=== PATIENT | female | born 1940 | race Caucasian/White ===

== ENCOUNTER 2024-01-03 14:13 | Emergency (ER) | payer MEDICARE, SELFPAY ==
[2024-01-03 14:30] VITALS: BP 135/75; BMI 28.8
[2024-01-03 14:47] LABS: ALT (SGPT) 13 U/L (0-35); AST (SGOT) 26 U/L (14-36); Albumin 3.5 g/dl (3.5-5.0); Alkaline Phosphatase 77 U/L (38-126); Blood Urea Nitrogen 21 mg/dl (7-17); Calcium 8.9 mg/dl (8.4-10.2); Carbon Dioxide 22 mmol/L (22-30); Chloride 111 mmol/L (98-107); Estimated Creatinine Clearance 34 ml/min; Glucose 107 mg/dl (70-99); Potassium 4.4 mmol/L (3.5-5.1); Sodium 139 mmol/L (135-145); Total Bilirubin 0.4 mg/dl (0.2-1.3); Total Protein 5.7 g/dl (6.3-8.2)
--- NOTE | 2024-01-03 15:03 | ED.GENMED ---
History of Present Illness
General
Chief Complaint: Abnormal Lab Value
Source: family and fpc
Exam Limitations: dementia
Time Seen by Provider: 01/03/24 15:02
Nursing documentation reviewed up to this point in time: agreed with
History of Present Illness
History of Present Illness:
Patient is an 83-year-old female with past medical history of aortic valve replacement on Plavix, polymyalgia rheumatica memory issues sent to the ER from assisted living facility for evaluation of low hemoglobin. Daughter is at bedside per
patient's hemoglobin was apparently 6.5 from blood work that was done yesterday. It was documented from fpc paperwork that patient's hemoglobin is 8.0 on 12/27 they report patient was recently hospitalized at [facility] December
2 for 6 days for an upper and lower GI bleed. She did require transfusions at the time. They were not able to cauterized the bleeding that they found on endoscopy but they put some type of adhesive. She is scheduled for GI appointment in January
from [facility] [address] and repeat endoscopy in February. Plavix was discontinued during hospitalization patient was restarted back on Plavix December 18. She is still on ASA. Patient presents awake alert has no complaints not exactly
sure why she is here. She is at baseline mental status as per daughters at bedside.
Daughters report last time she had a low hemoglobin she was vomiting blood and had rectal bleeding and there was no complaints of this from the fpc.
I spoke with staff from [facility] and there was no report from [place] of this.
Review of Systems
Review of Systems
Allergies reviewed?: Yes
Unable to obtain full review of systems at this time due to: dementia
All Other Systems: ROS reviewed and negative except as documented in HPI and ROS
Constitutional: Reports no symptoms
Respiratory: Reports no symptoms
Cardiac: Reports no symptoms
ABD/GI: Reports no symptoms
Musculoskeletal: Reports no symptoms
Skin: Reports no symptoms
Neurological: Reports no symptoms
Phy Exam
General Physical Exam
General Presentation: no apparent distress
General age: appears stated age
General Skin: warm and dry
General Habitus: elderly
General Mental: alert
General Hydration: appears well hydrated
Cardiovascular Exam
Cardiovascular Exam: regular rate/rhythm, no murmur and normal peripheral pulses
Pulmonary Exam
Pulmonary Exam: lungs clear and no respiratory distress
Gastrointestinal Exam
Gastrointestinal Exam: normal bowel sounds, non tender, soft and other (Rectal exam done no stool in rectum)
Neurological Exam
Neurological Exam: alert
Musculoskeletal Exam
Musculoskeletal Exam: full ROM
Skin Exam
Skin Exam: normal color and warm/dry
Psychiatric Exam
Psychiatric Exam: normal mood/affect
Course
Orders/Labs/Results
Orders:
Orders
01/03/24 14:15
EKG [Electrocardiogram (*1)] Urgent
Reason for Study: Vertigo / Dizzy
EKG- Treatment ONCE
01/03/24 14:16
Type+Screen Urgent
Complete Blood Count/With Diff Urgent
Comprehensive Metabolic Panel Urgent
Abnormal Lab Results
01/03/24
14:16
RBC 2.50 L 10^6/uL
(4.20-5.40)
Hgb 8.0 L g/dL
(12.0-16.0)
Hct 23.6 L %
(37.0-47.0)
MCH 32.0 H pg
(27.0-31.0)
MPV 11.0 H fL
(7.4-10.4)
Absolute Lymphs (auto) 0.9 L 10^3/uL
(1.2-3.4)
Absolute Monos (auto) 0.8 H 10^3/uL
(0.1-0.6)
Lymphocytes % 16.3 L %
(20.5-51.1)
Monocytes % 14.4 H %
(1.7-9.3)
Chloride 111 H mmol/L
(98-107)
BUN 21 H mg/dl
(7-17)
Creatinine 1.4 H mg/dL
(0.6-1.0)
Glucose 107 H mg/dl
(70-99)
Total Protein 5.7 L g/dl
(6.3-8.2)
01/03/24 14:16
01/03/24 14:16
Vital Signs
Initial and Last Documented VS:
Initial Vital Signs
Pulse Resp Pulse Ox
83 19 94
01/03/24 14:15 01/03/24 14:15 01/03/24 14:15
Last Documented Vital Signs
Temp Pulse Resp BP Pulse Ox
98.5 F 81 16 133/45 95
01/03/24 16:18 01/03/24 17:00 01/03/24 17:00 01/03/24 17:00 01/03/24 17:00
Tenoner Operator consulted with Physician
Tenoner Operator consulted with physician?: Yes
Name of Physician Consulted: Messi
MDM/Problems Addressed
Differential Diagnosis Includes:
Not limited to anemia
MDM/Problems Addressed:
Patient is an 83-year-old female from assisted living sent for low hemoglobin of 6.0. Patient was recently hospitalized at [facility] for upper GI bleed EGD showing severe esophagitis. Patient did receive transfusions while
hospitalized. She apparently had a hemoglobin of 8.0 in December 27 and hemoglobin from yesterday January 01 was found to be 6.5 patient was sent here for evaluation. Daughters report patient previously at [facility] did have upper and lower GI
bleeding with anemia and she has not had any episodes at this time. She is awake alert and mlidly confused at baseline not able to give full history.
Patient presents awake alert no acute distress no complaints. Abdomen soft nontender rectal exam done no stool. Hemoglobin stable at 8.0, hematocrit 23.6 normal platelets normal white count no fever. Stable vital signs. Patient is not been here
in the past BUN 21 creatinine minimally elevated 1.4. NSR on EKG. patient has no complaints and is stable here with a hemoglobin of 8.0
With no bleeding stable for d/c
I spoke with Georgette, health and technical solutions director at [facility] and reviewed patient's hemoglobin today of 8.0. Patient's GI specialist is Dr. Bryant Cali in [place], she does have an appointment in January and is scheduled for repeat endoscopy
in February however I reviewed with staff that patient should be seen sooner and they will call to schedule an appointment. All of this was reviewed with daughters.
1644: I spoke with Nurse at Dr Cali office who spoke with daughter and was able to arrange earlier appt. tomorrow and daughter will take patient to the appointment.
Case reviewed with ED physician stable for discharge home but will need follow-up with outpatient G as scheduled tomorrow.
*Critical Care Note
Total Time (30-74mins, 75-104mins- exclusive of procedures): Not Applicable
Data Reviewed
Review of Other/Old Records Reveals: Other (Records from [facility] endoscopy shows severe esophagitis of bleeding verifications was found in the lower third of the esophagus area was injected with epinephrine for hemostasis and
hemostatic spray was deployed)
ED Attending Note
-
Portions of this chart may have been created with voice recognition software.� Occasional wrong word or��sound alike� substitutions may have occurred due to the inherent limitations of voice recognition software.
Discharge Plan
Departure
Patient Disposition: Home (Routine Discharge)
Date of Disposition: 01/03/24
Time of Disposition: 16:58
Patient with high blood pressure during this ER visit?: No
Condition: Fair
Covid-19: Not Applicable
Discharge Problem:
Anemia
Prescriptions:
No Action
atorvastatin [Lipitor] 40 mg Tablet
40 mg PO HS
bupropion HCl [Wellbutrin SR] 150 mg Tablet Sustained-Release 12 Hr
150 mg PO DAILY
acetaminophen [Tylenol] 325 mg Tablet
650 mg PO Q4HPRN PRN (Reason: mild pain)
lisinopril 20 mg Tablet
20 mg PO BID
clopidogrel [Plavix] 75 mg Tablet
75 mg PO DAILY
amlodipine [Norvasc] 5 mg Tablet
5 mg PO DAILY
hydrocortisone 1 % Cream
1 applic TOPICAL BIDPRN PRN (Reason: to back)
pantoprazole [Protonix] 40 mg Tablet,Delayed Release (Dr/Ec)
40 mg PO BID
dapsone 25 mg Tablet
25 mg PO DAILY
metoprolol succinate [Toprol XL] 25 mg Tablet Extended Release 24 Hr
25 mg PO DAILY
hydroxychloroquine [Plaquenil] 200 mg Tablet
200 mg PO DAILY
memantine [Namenda] 10 mg Tablet
10 mg PO DAILY
cholecalciferol (vitamin D3) [Vitamin D3] 50 mcg (2,000 unit) Tablet
50 mcg PO DAILY
Referrals:
Maddison Murguia MD [Family Provider] -
Activity Restrictions/Additional Instructions:
Patient is anemic with a hemoglobin of 8.0. Patient should follow-up with GI as scheduled tomorrow and return if if any worsening of symptoms including weakness vomiting blood rectal bleeding black or dark stools or any further concerns.
Interventions
Interventions:
*Risk Screen - Suicide Last Done: 01/03/24 14:30
*General Assessment Last Done: 01/03/24 14:30
*Neglect/Abuse Screening Last Done: 01/03/24 14:30
ED- Fall Risk Assessment Last Done: 01/03/24 14:30
*ED COVID-19 Vaccine History Last Done: 01/03/24 14:30
*Nursing Disposition Last Done: 01/03/24 17:12
Discharge Date and Time
Discharge Date/Time: 01/03/24 17:13
Print Language: CITIZEN OF [place]
[2024-01-03 15:17] VITALS: BP 134/39
[2024-01-03 15:18] LABS: % Eosinophils 3.5 % (0-6); % Immature Granulocytes 0.2 % (0-0.5); % Lymphocytes 16.3 % (20.5-51.1); % Monocytes 14.4 % (1.7-9.3); % Neutrophils 64.6 % (42.2-75.2); Absolute Basophils 0.1 10^3/uL (0-0.2); Absolute Eosinophils 0.2 10^3/uL (0-0.7); Absolute Lymphocytes 0.9 10^3/uL (1.2-3.4); Absolute Monocytes 0.8 10^3/uL (0.1-0.6); Absolute Neutrophils 3.7 10^3/uL (1.4-6.5); Hematocrit 23.6 % (37.0-47.0); Mean Corp Hgb Conc. 33.9 g/dL (33.0-37.0); Mean Corpuscular Volume 94.4 fL (81.0-99.0); Nucleated Red Blood Cells % 0 %; Platelet Count 205 10^3/uL (130-400); Red Cell Dist. Width 12.8 % (11.5-14.5); White Blood Cell Count 5.8 10^3/uL (4.8-10.8)
[2024-01-03 15:23] VITALS: BP 134/39
[2024-01-03 16:00] VITALS: BP 132/47
[2024-01-03 16:18] VITALS: BP 132/47
[2024-01-03 17:00] VITALS: BP 133/45
== END 2024-01-03 17:13 | disposition home or self-care (01) ==
LOC: EMR 14:13
PROVIDERS: EMERGENCY PHYSICIAN Emergency Medicine; FAMILY PHYSICIAN Internal Medicine Geriatric Medicine
DX: D64.9 Anemia, unspecified (principal); F03.90 Unspecified dementia, unspecified severity, without behavioral disturbance, psychotic disturbance, mood disturbance, and anxiety; M35.3 Polymyalgia rheumatica; Z95.2 Presence of prosthetic heart valve; Z79.02 Long term (current) use of antithrombotics/antiplatelets; Z79.82 Long term (current) use of aspirin
CPT/HCPCS: 99283; 80053; 85025; 86850; 86900; 86901; 93005

== ENCOUNTER → 2024-04-07 10:36 | Outpatient (REF) | payer MEDICARE, SELFPAY | LOC: HWRAD 10:36 | PROVIDERS: ATTENDING PHYSICIAN Student in an Organized Health Care Education/Training Program | DX: Z13.820 Encounter for screening for osteoporosis (principal); M25.50 Pain in unspecified joint; M25.69 Stiffness of other specified joint, not elsewhere classified; M35.3 Polymyalgia rheumatica; R21 Rash and other nonspecific skin eruption; R79.89 Other specified abnormal findings of blood chemistry; Z87.19 Personal history of other diseases of the digestive system; Z78.0 Asymptomatic menopausal state | CPT/HCPCS: 73564; 77080 ==

== ENCOUNTER 2024-11-27 13:49 | Emergency (ER) | payer MEDICARE, SELFPAY ==
[2024-11-27 13:51] VITALS: BP 163/57
[2024-11-27] MEDS: PROTONIX IV 40 MG IV (14:58)
[2024-11-27 15:17] VITALS: BMI 27.6
[2024-11-27 15:18] LABS: % Basophils 0.8 % (0-2); % Eosinophils 1.9 % (0-6); % Immature Granulocytes 0.2 % (0-0.5); % Monocytes 14.4 % (1.7-9.3); % Neutrophils 66.7 % (42.2-75.2); Absolute Basophils 0.1 10^3/uL (0-0.2); Absolute Eosinophils 0.1 10^3/uL (0-0.7); Absolute Monocytes 0.9 10^3/uL (0.1-0.6); Absolute Neutrophils 4.3 10^3/uL (1.4-6.5); Hematocrit 29.6 % (37.0-47.0); Hemoglobin 9.8 g/dL (12.0-16.0); Mean Corp Hgb Conc. 33.1 g/dL (33.0-37.0); Mean Corpuscular Hgb 27.9 pg (27.0-31.0); Mean Corpuscular Volume 84.3 fL (81.0-99.0); Mean Platelet Volume 10.7 fL (7.4-10.4); Nucleated Red Blood Cells % 0 %; Platelet Count 195 10^3/uL (130-400); Red Blood Cell Count 3.51 10^6/uL (4.20-5.40); Red Cell Dist. Width 14.9 % (11.5-14.5); White Blood Cell Count 6.4 10^3/uL (4.8-10.8)
[2024-11-27 15:28] LABS: INR 0.98; PT 13.3 Sec (11.4-14.6)
[2024-11-27 15:29] LABS: APTT 28.8 Sec (23.4-35.0); Lactic Acid 0.8 mmol/L (0.7-2.0)
[2024-11-27 15:32] LABS: ALT (SGPT) 19 U/L (0-35); AST (SGOT) 25 U/L (14-36); Albumin 3.8 g/dl (3.5-5.0); Alkaline Phosphatase 102 U/L (38-126); Blood Urea Nitrogen 27 mg/dl (7-17); Calcium 9.2 mg/dl (8.4-10.2); Carbon Dioxide 24 mmol/L (22-30); Chloride 112 mmol/L (98-107); Estimated Creatinine Clearance 31 ml/min; Glucose 107 mg/dl (70-99); Potassium 4.1 mmol/L (3.5-5.1); Sodium 142 mmol/L (135-145); Total Bilirubin 0.4 mg/dl (0.2-1.3); Total Protein 6.1 g/dl (6.3-8.2); eGFR 37.56
--- NOTE | 2024-11-27 18:08 | ED.GENMED ---
History of Present Illness
General
Chief Complaint: Rectal Bleeding
Source: patient and family
Exam Limitations: dementia
Time Seen by Provider: 11/27/24 13:59
Nursing documentation reviewed up to this point in time: agreed with
History of Present Illness
History of Present Illness:
see MDM
Review of Systems
Review of Systems
Allergies reviewed?: Yes
Unable to obtain full review of systems at this time due to: dementia
All Other Systems: Not applicable
Phy Exam
Physical Exam
Physical Exam:
GENERAL: Alert , in no apparent distress
EYE: pupils equal and reactive
NECK: Supple
ENT: o/p clr, mmm.
CARDIAC: Regular rate and rhythm .no murmur
LUNGS: Clear breath sounds bilaterally, no acute respiratory distress, no wheezes/rales/rhonchi
ABDOMEN: Soft,NO TEDNERENSS, NO MASSES, no r/g, no cvat, normal bowel sounds
rectal: exgternal hemorrhoids, nonbleeding, nontender
HEME NEG BROWN STOOL INVAULT; NO BLEEDING
NEUROLOGICAL: Alert and orientedx 1 (baseline), no focal neuro deficits
SKIN: Warm and dry, skin intact.
MUSCULOSKELETAL: No edema, well perfused.
PSYCH: Normal and appropriate interaction.
Course
Orders/Labs/Results
Orders:
Orders
11/27/24 14:42
CT Abd/Pel (IV only)-DH only Urgent
Comment:
Reason For Exam: G bleed
11/27/24 14:43
IV Insert/Care/Rem.- Treatment PRN
Pantoprazole [Protonix IV] 40 mg IV NOW STA
11/27/24 14:58
Type+Screen Urgent
Complete Blood Count/With Diff Urgent
Comprehensive Metabolic Panel Urgent
Lactic Acid Urgent
PTT Urgent
Prothrombin Time Urgent
Abnormal Lab Results
11/27/24
14:58
RBC 3.51 L 10^6/uL
(4.20-5.40)
Hgb 9.8 L g/dL
(12.0-16.0)
Hct 29.6 L %
(37.0-47.0)
RDW 14.9 H %
(11.5-14.5)
MPV 10.7 H fL
(7.4-10.4)
Absolute Lymphs (auto) 1.0 L 10^3/uL
(1.2-3.4)
Absolute Monos (auto) 0.9 H 10^3/uL
(0.1-0.6)
Lymphocytes % 16.0 L %
(20.5-51.1)
Monocytes % 14.4 H %
(1.7-9.3)
Chloride 112 H mmol/L
(98-107)
BUN 27 H mg/dl
(7-17)
Creatinine 1.4 H mg/dL
(0.6-1.0)
Glucose 107 H mg/dl
(70-99)
Total Protein 6.1 L g/dl
(6.3-8.2)
11/27/24 14:58
11/27/24 14:58
Vital Signs
Initial and Last Documented VS:
Initial Vital Signs
Temp Pulse Resp BP Pulse Ox
37.2 C 70 18 163/57 98
11/27/24 13:51 11/27/24 13:51 11/27/24 13:51 11/27/24 13:51 11/27/24 13:51
Last Documented Vital Signs
Temp Pulse Resp BP Pulse Ox
37.2 C 77 15 163/57 94
11/27/24 13:51 11/27/24 16:30 11/27/24 16:30 11/27/24 13:51 06/19/25 18:10
MDM/Problems Addressed
Differential Diagnosis Includes:
see MDM
MDM/Problems Addressed:
Note:
CHIEF COMPLAINT(S)
Blood in stool.
HISTORY OF PRESENT ILLNESS
The patient is an 84-year-old female who presents with blood in her stool. In December of the previous year, she experienced a significant upper gastrointestinal bleed that was both oral and rectal, requiring hospitalization at [facility] where she
received blood transfusions. A follow-up endoscopy in March showed healing, and her hemoglobin had risen to 8.9 g/dL. Today, the patient had an episode of diarrhea that was noted to contain blood. The phlebotomist medical lab assistant reported an abnormal amount
of blood in the toilet. There was no vomiting of blood, dizziness, or weakness reported by the patient. The patient denies chest pain, shortness of breath, dizziness, and abdominal pain.
ADDITIONAL HISTORY OBTAINED FROM SOURCES OTHER THAN THE PATIENT
According to the family, the patient lives in [place] due to memory issues. She has not had a colonoscopy in approximately 14 years, at which time a polyp was removed. There is no known history of diverticulosis, diverticulitis, Crohns
disease, or ulcerative colitis. The family also mentioned that the patients medications could contribute to diarrhea.
PAST SURGICAL HISTORY
The patient has had a valve replacement and a hip fracture for which a titanium cristopher was placed in her right hip. No surgeries on the gallbladder or appendix.
SOCIAL HISTORY
The patient does not reside with her daughters.
PHYSICAL EXAM
- Nursing notes reviewed and vital signs reviewed.
- Lower extremities: swelling in lower legs and ankles noted, feet of the bed elevated at night as a management strategy.
DIFFERENTIAL DIAGNOSIS
The Differential Diagnosis includes, in no particular order and is not limited to:
1. Lower gastrointestinal bleed
2. Hemorrhoidal bleeding
3. Diverticular bleed
4. Ischemic colitis
5. Colonic neoplasm
6. Rectal varices
7. Angiodysplasia
8. Inflammatory bowel disease
9. Medications causing bleeding
10. Coagulation disorder
CARE-UPDATE
11/27/24 - 18:01
Patient reports no further episodes of bleeding, and physical examination does not reveal any obvious abnormalities aside from a small fat-containing hernia with some surrounding fluid, suspected by radiology. The hernia is not tender or causing
pain, and there is no current indication for surgical intervention unless it becomes painful. Lactic acid levels are normal, reducing the likelihood of ischemic colitis. Hemoglobin levels are stable and indicate no active bleeding. A rectal exam
shows no signs of blood. The plan is to discharge the patient to home observation, with instructions to return if there are any recurrent episodes of bleeding. The surgeon environmental officer will be consulted regarding the hernia as a precaution. Overall,
patients vital signs are stable, and there is no immediate risk requiring hospital admission.
Disposition:
SUMMARY OF ENCOUNTER
An 84-year-old female with dementia presented from a halfway for an episode of painless rectal bleeding. The patient has a history of an upper GI bleed secondary to an esophageal tear, was treated at [facility], and was taken off blood thinners
except for a baby aspirin. On examination, the patient was comfortable and in no distress, with a non-tender abdomen, a rectal exam showing brown stool that was hemacult negative, and multiple non-tender, non-bleeding external hemorrhoids.
DISPOSITION
The patient will be discharged back to the halfway for observation.
ASSESSMENT
Painless rectal bleeding of unclear etiology, possibly related to hemorrhoids or a previous GI bleed.
MANAGEMENT OF THE PATIENTS CARE WAS DISCUSSED WITH
The surgical team, specifically Dr. Casas, and the attending ED physician, Dr. Quigley.
PLAN
The patient will be monitored for any recurrence of rectal bleeding or worsening abdominal pain. Follow-up scheduled with surgical and gastroenterology teams as outpatient.
INDEPENDENT REVIEW OF LABS AND INTERPRETATION OF TESTS
- My independent review of hemoglobin is improved to 9.8 g/dL from her baseline of 8 g/dL.
- My independent review of the complete blood count shows a normal white blood cell count and platelet count.
- My independent review of the renal function tests shows BUN at 27 and creatinine at 1.4, which are stable.
- My independent interpretation of the CT scan shows a ventral hernia containing only fat with a small adjacent mass of fluid.
PATIENT EDUCATION AND COUNSELING
The family was advised to monitor the patient for any further episodes of bleeding or worsening abdominal pain and return if these occur.
FOLLOW-UP INSTRUCTIONS
Follow up with surgical and gastroenterology specialists as an outpatient.
MEDICAL DECISION MAKING
1. Chronic conditions affecting care: history of upper GI bleed and dementia.
2. Data Reviewed:
- Category 1: Labs and CT imaging were ordered and interpreted.
- Category 3: Case management discussion included input from surgery and ED attending.
3. Risk: Outpatient management was deemed appropriate due to the absence of significant current bleeding or abnormalities, stable vitals, and the familys preference to avoid hospital admission due to severe dementia.
PATHOLOGIES TO CONSIDER
- Lower gastrointestinal bleed
- Hemorrhoidal bleeding
- Diverticular bleed
- Ischemic colitis
- Colonic neoplasm
- Rectal varices
*Pulse Oximetry
SaO2: 94
Oxygen Mode of Delivery: Room air
Patient hypoxic: no
Comment: 94
*Critical Care Note
Total Time (30-74mins, 75-104mins- exclusive of procedures): Not Applicable
ED Attending Note
-
Portions of this chart may have been created with voice recognition software.� Occasional wrong word or��sound alike� substitutions may have occurred due to the inherent limitations of voice recognition software.
Discharge Plan
Departure
Patient Disposition: Home (Routine Discharge)
Date of Disposition: 11/27/24
Time of Disposition: 18:08
Patient with high blood pressure during this ER visit?: No
Condition: Fair
Covid-19: Not Applicable
Discharge Problem:
Hernia, Hemorrhoid
Instructions: Hemorrhoids (DC), Abdominal Hernia
Prescriptions:
No Action
atorvastatin [Lipitor] 40 mg Tablet
40 mg PO HS
bupropion HCl [Wellbutrin SR] 150 mg Tablet Sustained-Release 12 Hr
150 mg PO DAILY
acetaminophen [Tylenol] 325 mg Tablet
650 mg PO Q4HPRN PRN (Reason: mild pain)
lisinopril 20 mg Tablet
20 mg PO BID
amlodipine [Norvasc] 5 mg Tablet
5 mg PO DAILY
hydrocortisone 1 % Cream
1 applic TOPICAL BIDPRN PRN (Reason: back)
pantoprazole [Protonix] 40 mg Tablet,Delayed Release (Dr/Ec)
40 mg PO BID
dapsone 25 mg Tablet
25 mg PO DAILY
metoprolol succinate [Toprol XL] 25 mg Tablet Extended Release 24 Hr
25 mg PO DAILY
hydroxychloroquine [Plaquenil] 200 mg Tablet
200 mg PO DAILY
memantine [Namenda] 10 mg Tablet
10 mg PO DAILY
cholecalciferol (vitamin D3) [Vitamin D3] 50 mcg (2,000 unit) Tablet
50 mcg PO DAILY
aspirin 81 mg Tablet,Delayed Release (Dr/Ec)
81 mg PO DAILY
Referrals:
Valentino Roe MD [Active, Gastroenterology] - Follow up in 5-7 days
Davy Jurado MD [Active, Surgical] - Follow up in 5-7 days
Referral Note: surgery
Maddison Murguia MD [Family Provider]
Activity Restrictions/Additional Instructions:
There was no GI bleeding here during observation. She does have hemorrhoids. Her rectal exam showed brown stool with no bleeding on the Hemoccult. Her hemoglobin is improved from her baseline and it was 9.8 today[address] Her CAT scan did reveal a
subtle umbilical or ventral fat-containing hernia that may have a little fluid adjacent to it. She was nontender in her abdomen and had a normal white count with no fever so we did not feel like this was any cause for concern but she should
follow-up with a surgeon as an outpatient. Should she become symptomatic with abdominal pain or fever or any redness to the skin she needs to come back to the ER. Observe for any more rectal bleeding episodes and you can return as needed.
Otherwise see GI
Interventions
Interventions:
*Risk Screen - Suicide Last Done: 11/27/24 13:51
*General Assessment Last Done: 11/27/24 13:51
*Neglect/Abuse Screening Last Done: 11/27/24 15:09
*ED- Fall Risk Assessment Last Done: 11/27/24 13:51
*ED COVID-19 Vaccine History Last Done: 11/27/24 13:51
*Nursing Disposition Last Done: 11/27/24 18:54
UG-Bycefv-Wqqvfgiotw Assessment Last Done: 11/27/24 15:00
ED- Cardiac Assessment Last Done: 11/27/24 15:00
ED- Pulmonary Assessment Last Done: 11/27/24 15:00
Discharge Date and Time
Discharge Date/Time: 11/27/24 18:55
Print Language: [place]
== END 2024-11-27 18:55 | disposition home or self-care (01) ==
LOC: EMR 13:49
PROVIDERS: Physician Assistant; EMERGENCY PHYSICIAN Emergency Medicine; FAMILY PHYSICIAN Internal Medicine Geriatric Medicine
DX: K43.9 Ventral hernia without obstruction or gangrene (principal); K64.9 Unspecified hemorrhoids; F03.90 Unspecified dementia, unspecified severity, without behavioral disturbance, psychotic disturbance, mood disturbance, and anxiety
CPT/HCPCS: 99284; 96374; 74177; 80053; 83605; 85025; 85610; 85730; 86850; 86900; 86901; Q9967

== ENCOUNTER → 2025-03-21 10:57 | Outpatient (REF) | payer MEDICARE, SELFPAY | LOC: RCS 10:57 | PROVIDERS: ATTENDING PHYSICIAN Internal Medicine Cardiovascular Disease; FAMILY PHYSICIAN Internal Medicine Geriatric Medicine | DX: Z95.2 Presence of prosthetic heart valve (principal); I10 Essential (primary) hypertension | CPT/HCPCS: 93306 ==